=== PATIENT | male | born 1975 | race Caucasian/White ===

== ENCOUNTER 2022-08-12 13:10 | Emergency (ER) | payer BC ==
[~2022-08-12] VITALS: Ht 167.6 cm; Wt 60.3 kg
[2022-08-12] MEDS ORDERED: DIAZEPAM 2 MG TABLET PO ONE (13:30)
[2022-08-12] MEDS ORDERED: IBUPROFEN 600 MG TABLET PO ONE (13:30)
[2022-08-12] MEDS ORDERED: ACETAMINOPHEN 325 MG TABLET PO ONE (13:30)
--- NOTE | 2022-08-12 13:33 | NUR ---
PT IS IN ROOM #2B. DR KLEIN EVALUATED THE PT.
[2022-08-12] MEDS ORDERED: DIAZEPAM 2 MG TABLET ONE (13:37)
[2022-08-12] MEDS ORDERED: IBUPROFEN 400 MG TABLET ONE (13:38)
[2022-08-12] MEDS ORDERED: ACETAMINOPHEN 325 MG TABLET ONE (13:38)
[2022-08-12] MEDS ORDERED: predniSONE 10 MG TABLET ONE (13:39)
[2022-08-12] MEDS ORDERED: predniSONE 50 MG TABLET ONE (13:39)
[2022-08-12] MEDS ORDERED: predniSONE 20 MG TABLET PO ONE (13:45)
[2022-08-12] MEDS ORDERED: HYDROCODONE/APAP 5-325MG TABLET ONE (14:29)
[2022-08-12] MEDS ORDERED: HYDROCODONE/APAP 5-325MG TABLET PO ONE (14:30)
[2022-08-12] MEDS ORDERED: ACET-73 PO (15:39)
[2022-08-12] MEDS ORDERED: IBUP-2314 PO (15:39)
[2022-08-12] MEDS ORDERED: PRED20TA PO (15:40)
--- NOTE | 2022-08-12 17:06 | NUR ---
PT WAS D/C'd TO HOME. D/C INSTRUCTIONS GIVEN TO THE PT BY DR KLEIN.
[2022-08-12 17:07] VITALS: BP 131/77
== END 2022-08-12 17:09 | disposition home or self-care (01) ==
LOC: ER 13:10
DX: M25.511 Pain in right shoulder (principal); M54.12 Radiculopathy, cervical region; E11.9 Type 2 diabetes mellitus without complications; R07.89 Other chest pain
CPT/HCPCS: 99284; 71045; 73030; 73060; 73080; J7512 ×2; A4663